=== PATIENT | male | born 1995 | race Caucasian/White ===

== ENCOUNTER 2023-11-24 09:09 | Emergency (ER) | payer OTHER ==
[~2023-11-24] VITALS: Ht 175.3 cm; Wt 99.8 kg
[~2023-11-24 09:09] MED LIST: CRUTCH3 XX; IBUP600 PO
[2023-11-24 09:25] VITALS: BP 135/91
== END 2023-11-24 11:26 | disposition home or self-care (01) ==
LOC: ER 09:09
DX: M25.561 Pain in right knee (principal)
CPT/HCPCS: 73562-RT; 99283-25